=== PATIENT | male | born 1995 | race Native Hawaiian/Other Pacific Islander ===

== ENCOUNTER 2018-06-13 00:08 | Emergency (ER) | payer BC ==
[~2018-06-13] VITALS: Ht 185.4 cm; Wt 68.0 kg
[2018-06-13 01:55] LABS: PLATELET COUNT 218 K/uL (142-355)
[2018-06-13 02:07] LABS: POTASSIUM 3.9 mmol/L (3.6-5.2)
[2018-06-13 02:20] VITALS: BP 128/69; TEMP 99.9
== END 2018-06-13 02:20 | disposition home or self-care (01) ==
LOC: ED 00:08
PROVIDERS: Emergency Medicine
DX: R35.0 Frequency of micturition (principal)
CPT/HCPCS: 36415; 80053; 81000; 85027; 99283